=== PATIENT | female | born 1990 | race Caucasian/White ===

== ENCOUNTER 2022-11-23 12:01 | Outpatient (CLI) | payer OTHER, SELFPAY ==
--- NOTE | ~2022-11-23 | XR_ITS ---
EXAMINATION: XR hysterosalpingogram DATE: 11/23/2022 12:42 INDICATION: Infertility. TECHNIQUE: Fluoroscopy was performed by the radiologist during contrast infusion into the endometrial cavity of the uterus by the primary physician. Fluoroscopy exposure time was 0.8 minutes. The total number of images was 8. FINDINGS: Intrauterine cavity is normal in morphology. The fallopian tubes are normal in caliber. The re is normal free intraperitoneal spillage of contrast on the left. Intravasation of contrast is note d. IMPRESSION: 1. Normal free intraperitoneal spillage of contrast from left fallopian tube. 2. No visualized intraperitoneal spillage of contrast from right fallopian tube. Reviewed, dictated and finalized at location A. IMPRESSION: 1. Normal free intraperitoneal spillage of contrast from left fallopian tube. 2. No visualized intraperitoneal spillage of contrast from right fallopian tube .
== END 2022-11-23 12:02 | disposition home or self-care (01) ==
LOC: ANHIMG 12:05
PROVIDERS: Visit Provider Obstetrics & Gynecology Gynecology
DX: Z31.49 Encounter for other procreative investigation and testing (principal)
CPT/HCPCS: 58340; 74740; Q9966

== ENCOUNTER → 2023-02-09 09:11 | Outpatient (CLI) | payer OTHER, SELFPAY ==
--- NOTE | ~2023-02-09 | US_ITS ---
Pelvic ultrasound. Clinical History: First trimester , establish dates and viability, history of infertility Technique: Realtime transabdominal and transvaginal scanning of the pelvis was performed. Color flow Doppler and Doppler spectral analysis were performed. Findings: The uterus is anteverted. There is and early intrauterine gestational sac. [place]-rump lengt h of 3.5 mm corresponds to an estimated gestational age of 6 weeks 0 days. heart rate is 114 bp m. The right ovary measures 2.1 x 2.5 x 2.0 cm. No significant right ovarian or adnexal mass is seen. The left ovary measures 2.8 x 2.6 x 1.4 cm. No significant left ovarian or adnexal mass is seen. There is no evidence of free fluid in the cul de sac. Impression: Live intrauterine gestation with estimated gestational age of 6 weeks 0 days. heart rate is 114 bpm. Sonographic ADRIAN is 10/05/2023. Reviewed, dictated and finalized at location . Impression: Live intrauterine gestation with estimated gestational age of 6 weeks 0 days. F etal heart rate is 114 bpm. Sonographic ADRIAN is 10/05/2023.
== END ==
PROVIDERS: PCP Obstetrics & Gynecology Gynecology; Visit Provider Obstetrics & Gynecology Gynecology
DX: O09.01 Supervision of pregnancy with history of infertility, first trimester (principal); Z3A.01 Less than 8 weeks gestation of pregnancy
CPT/HCPCS: 76801; 76817

== ENCOUNTER → 2023-05-09 14:11 | Outpatient (CLI) | payer OTHER, SELFPAY ==
--- NOTE | ~2023-05-09 | US_ITS ---
EXAMINATION: US OB /maternal detail DATE: 05/09/2023 14:53 INDICATION: survey TECHNIQUE: Multiple obstetric sonographic images performed. FINDINGS: Comparison ultrasound dated 02/09/2023 There is a single living fetus in variable presentation. The placenta is posterior without placenta previa. Placental margin to the cervix is 2.6 cm. Cervical length is 3.2 cm. Amniotic fluid volume is subjectively normal. cardiac activity and movement is noted with a heart rate of 151 beats per minute. The following anatomy was identified as normal: 4 chamber heart (ventricular outflow tracts not well visualized due to position). 3 vessel cord cord insertion kidneys urinary bladder stomach spine diaphragm ventricles cisterna magna cerebellum The following biometric data were obtained: BPD: 44mm corresponds to gestational age 19 weeks 1 days. Head circumference: 164 mm corresponds to gestational age 19 weeks 1 days. Abdominal circumference: 135 mm corresponds to gestational age 19 weeks 0 days. Femur length: 30 mm corresponds to gestational age 19 weeks 2 days. Head circumference to abdominal circumference ratio: 1.22 (normal range for expected gestational age is 1.09-1.26). Estimated weight: 274 grams +/- 41 grams using Hadlock method, 69%. IMPRESSION: 1: Single living intrauterine with an estimated gestational age of 18weeks 5days by initial ultrasound measurements, with an EDC of 10/05/2023 in variable presentation. 2. Limited survey for evaluation of outflow tracts due to lie. Remainder of the survey is unre markable. Reviewed, dictated and finalized at location A. IMPRESSION: 1: Single living intrauterine with an estimated gestational age of 18 weeks 5days by initial ultrasound measurements, with an EDC of 10/05/2023 in hailey iable presentation. 2. Limited survey for evaluation of outflow tracts due to lie. Remainder of the survey is unremarkable.
== END ==
PROVIDERS: PCP Obstetrics & Gynecology Gynecology; Visit Provider Advanced Practice Midwife
DX: Z36.9 Encounter for antenatal screening, unspecified (principal)
CPT/HCPCS: 76805

== ENCOUNTER → 2023-06-11 09:44 | Outpatient (CLI) | payer OTHER, SELFPAY ==
--- NOTE | ~2023-06-11 | US_ITS ---
EXAMINATION: US OB follow up DATE: 06/11/2023 10:14 INDICATION: Follow-up survey for heart views. TECHNIQUE: Real-time transabdominal obstetric ultrasound. FINDINGS: Comparison to multiple prior studies sequentially, with oldest reviewed study dated 2022. There is a single living fetus in vertex presentation. The placenta is posterior without placenta pr evia. Placental distance to the cervix is 1.2 cm. cardiac activity and movement is noted with a heart rate of 124 beats per minute. T he amniotic fluid volume is subjectively normal. Limited survey demonstrates a normal four-chamber heart and ventricular outflow tracts. IMPRESSION: 1. Single living intrauterine in vertex presentation. 2: Normal limited survey of four-chamber heart and ventricular outflow tracts. 3: Low-lying posterior placenta measuring 1.2 cm to the cervix. Reviewed, dictated and finalized at location A. THCARE OR MEDICAL IMPRESSION: 1. Single living intrauterine in vertex presentation. 2: Normal limited survey of four-chamber heart and ventricular outflow tr acts. 3: Low-lying posterior placenta measuring 1.2 cm to the cervix.
== END ==
PROVIDERS: PCP Advanced Practice Midwife; Visit Provider Advanced Practice Midwife
DX: Z36.2 Encounter for other antenatal screening follow-up (principal); Z3A.00 Weeks of gestation of pregnancy not specified; O44.40 Low lying placenta NOS or without hemorrhage, unspecified trimester
CPT/HCPCS: 76816

== ENCOUNTER → 2023-07-30 08:49 | Outpatient (CLI) | payer OTHER, SELFPAY ==
--- NOTE | ~2023-07-30 | US_ITS ---
EXAMINATION: US OB follow up DATE: 07/30/2023 09:49 INDICATION: Low lying placenta . TECHNIQUE: Real-time ultrasound of the pelvis was performed. COMPARISON: 06/11/2023 FINDINGS: There is a single living fetus in vertex presentation, longitudinal lie. The placenta is posterior, 7.5 cm from the cervix. Cervical length 3.7 cm. The cervix is closed. heart rate is 140 bpm. Th e amniotic fluid index is 16.5 cm, which is normal (5th to 95th percentile is 9.0 to 23.4 cm). The following biometric data were obtained: Biparietal diameter (BPD): 7.69 cm; head circumference (HC): 28.13 cm; abdominal circumference (AC): 25.92 cm; femur length (FL): 5.72 cm. These measurements are concordant. Estimated weight is 1525 g +/- 228.81 g, which correlates with the 18.3 percentile when 10/02/19 24 is used as estimated date of delivery. As single measurements, these parameters are each equal to the following estimated gestational ages w ith ranges of +/- 2 standard deviations: BPD: 30 weeks 6 days ( 27 weeks 5 days - 33 weeks 6 days). HC: 30 weeks 6 days ( 27 weeks 6 days - 33 weeks 6 days). AC: 30 weeks 1 days ( 27 weeks 1 days - 33 weeks 0 days). FL: 30 weeks 0 days ( 27 weeks 6 days - 32 weeks 0 days). estimated gestational age based solely on measurements from this exam is 30 weeks 3 days +/- 2 weeks 1 days. IMPRESSION: Single living fetus in vertex presentation. ADRIAN by ultrasound 10/05/2023. The placenta is no longer low-lying. Reviewed, dictated and finalized at location K. REPAIRER
== END ==
PROVIDERS: PCP Obstetrics & Gynecology Gynecology; Visit Provider Obstetrics & Gynecology Gynecology
DX: O44.43 Low lying placenta NOS or without hemorrhage, third trimester (principal); Z3A.30 30 weeks gestation of pregnancy
CPT/HCPCS: 76816

== ENCOUNTER 2023-09-22 12:17 | Inpatient (IN) | payer OTHER, SELFPAY ==
--- NOTE | ~2023-09-22 | US_ITS ---
EXAMINATION: US OB limited DATE: 09/22/2023 16:20 INDICATION: Assess cardiac activity during third trimester TECHNIQUE: Real-time ultrasound of the pelvis was performed. The interpreting radiologist was not pre sent for the study. COMPARISON: None. FINDINGS: There is a single living fetus in vertex presentation. . No heart motion on either cine graysca le imaging or M-mode Doppler consistent with demise. IMPRESSION: 1. Single fetus with no discernible heart motion consistent with demise. Reviewed, dictated and finalized at location L.
[2023-09-22 13:00] VITALS: BP 128/92; PULSE 100
[2023-09-22 13:30] VITALS: BP 128/83; PULSE 99
[2023-09-22 13:43] LABS: Amphetamine Screen Urine Negative (Negative); Barbiturate Screen Urine Negative (Negative); Benzodiazepines Screen Urine Negative (Negative); Cannabinoid Screen Urine Negative (Negative); Cocaine Screen Urine Negative (Negative); Methadone Screen Urine Negative (Negative); Opiate Screen Urine Negative (Negative); Phencyclidine Screen Urine Negative (Negative)
[2023-09-22 13:52] LABS: Basophils Percent Auto 0.1 % (0.2-1.2); Eosinophils Percent Auto 0.2 % (0-4.4); Hematocrit 41.2 % (37.0-47.0); Hemoglobin 13.8 g/dL (12.0-15.0); Immature Granulocyte Absolute 0.06 K/mm3 (0.00-0.031); Immature Granulocyte Percent A 0.4 % (0-0.5); Lymphocytes Absolute Auto 1.56 K/mm3 (0.9-3.2); Lymphocytes Percent Auto 11.4 % (18.3-44.2); Mean Corpuscular HGB Conc 33.5 g/dl (32-36); Mean Corpuscular Volume 86.6 fl (80-100); Mean Platelet Volume 10.5 fl (7.4-10.4); Monocytes Absolute Auto 0.7 K/mm3 (0.1-0.6); Monocytes Percent Auto 4.8 % (2.6-8.5); Neutrophils Absolute Auto 11.4 K/mm3 (1.3-6.7); Neutrophils Percent Auto 83.1 % (45.5-73.1); Platelet Count Result 267 k/mm3 (150-375); Red Blood Count 4.76 M/mm3 (4.2-5.4); Red Cell Distribution Width 15.6 % (11.5-14.5); White Blood Count 13.7 K/mm3 (4.5-10.0)
[2023-09-22 14:00] VITALS: BP 109/86; PULSE 97
[2023-09-22 14:30] VITALS: BP 117/85; PULSE 99
[2023-09-22 15:22] LABS: Free T4 Free Thyroxine 0.79 ng/mL (0.78-2.19)
[2023-09-22 15:33] LABS: Thyroid Stimulating Hormone 0.597 uIU/mL (0.465-4.680)
[2023-09-22 15:43] VITALS: BMI 39.4
--- NOTE | 2023-09-22 15:43 | LDADM ---
This patient, Moni Lopez, was admitted to Labor/Delivery/Recovery 110 on 09/22/23 at 12:17. Plans for labor, pain management and were discussed with patient. Patient/family oriented to hospital policies and general routines including ID bracelet, bed and alarms, visiting hours, pain management, procedures, bathroom and other care routines, personal items, smoking policy, room service/diet and guest tray routines, security routines, and visiting hours. Patient/Family are encouraged to report perceived risks to care and to ask questions if they do not understand what they are told or what they should do. See OBIX for further documentation.
[2023-09-22 16:19] LABS: Hemoglobin A1C 5.2 % (<5.7)
[2023-09-22] MEDS: miSOPROStol 25 MCG TABLET XX (16:51)
[2023-09-22 17:00] VITALS: BP 134/89; PULSE 102
--- NOTE | 2023-09-22 17:08 | WPDOBADMIT ---
Obstetrics - Admit Note Admission Note: record reviewed. No pertinent additions to the history and/or any subsequent changes in the physical findings that are not consistent with the expected course of the were found. Additions to the history and/or subsequent changes in the physical findings follow. Pt diagnosed with IUFD at 38 weeks in the office.
--- NOTE | 2023-09-22 17:12 | WPDANESEPP ---
Anes - Eval Pre Procedure Procedure: labor epidural Date/Time: 09/22/23 17:12 Surgeon: lula Preop Diagnosis: pain during labor Pre Op Diagnosis: IUFD Patient Data Age: 33 Gender: F Height: 1.6 m Weight: 101 kg Last Vital Signs Pulse 102 H 09/22/23 17:00 BP 134/89 09/22/23 17:00 O2 Del Method Room Air 09/22/23 15:43 Allergies Allergy/AdvReac Type Severity Reaction Status Date / Time No Known Allergies Allergy Verified 09/03/23 13:29 Home Medications Medication Instructions Recorded Confirmed Type aspirin 81 mg tablet 81 mg PO DAILY 09/03/23 09/03/23 History cholecalciferol (vitamin D3) 125 5,000 unit PO WEEKLY 09/03/23 09/03/23 History mcg (5,000 unit) tablet (Vitamin D3) vits no.126-ferrous fum 1 tablet PO DAILY 09/03/23 09/03/23 History 28 mg iron-folic acid 800 mcg tablet (Classic ) Laboratory Tests 09/22/23 09/22/23 09/22/23 12:44 12:45 12:45 WBC 13.7 H K/mm3 (4.5-10.0) RBC 4.76 M/mm3 (4.2-5.4) Hgb 13.8 g/dL (12.0-15.0) Hct 41.2 % (37.0-47.0) MCV 86.6 fl (80-100) MCH 29.0 pg (26-34) MCHC 33.5 g/dl (32-36) RDW 15.6 H % (11.5-14.5) Plt Count 267 k/mm3 (150-375) MPV 10.5 H fl (7.4-10.4) Immature Gran % (Auto) 0.4 % (0-0.5) Neut % (Auto) 83.1 H % (45.5-73.1) Lymph % (Auto) 11.4 L % (18.3-44.2) [place] % (Auto) 4.8 % (2.6-8.5) Eos % (Auto) 0.2 % (0-4.4) Baso % (Auto) 0.1 L % (0.2-1.2) Lymph # (Auto) 1.56 K/mm3 (0.9-3.2) [place] # (Auto) 0.7 H K/mm3 (0.1-0.6) Eos # (Auto) 0.0 K/mm3 (0-0.3) Baso # (Auto) 0.0 K/mm3 (0.0-0.1) Abs Immat Gran (auto) 0.06 H K/mm3 (0.00-0.031) Absolute Neuts (auto) 11.4 H K/mm3 (1.3-6.7) Absolute Nucleated RBC 0.000 K/mm3 (0.0-0.012) Nucleated RBC % 0.0 % (0.0-0.2) LA PTT Screen Pending dRVVT Screen Pending dRVVT Additional Test Pending Lupus Anticoag Interp Pending Hemoglobin A1c 5.2 % (<5.7) TSH Free T4 0.79 ng/mL (0.78-2.19) Urine Opiates Screen Negative (Negative) Urine Methadone Screen Negative (Negative) Ur Barbiturates Screen Negative (Negative) Ur Phencyclidine Scrn Negative (Negative) Ur Amphetamine Screen Negative (Negative) U Benzodiazepines Scrn Negative (Negative) Urine Cocaine Screen Negative (Negative) U Cannabinoids Screen Negative (Negative) Beta-2-GPI IgG Ab Pending Pending Beta-2-GPI IgA Ab Pending Beta-2-GPI IgM Ab Phosphatidylserine Ab Phosphatidylserine IgG Phosphatidylserine IgA Phosphatidylserine IgM Anti-Cardiolipin IgG Ab Pending Anti-Cardiolipin IgA Ab Pending Anti-Cardiolipin IgM Ab Pending RPR CMV IgG Ab CMV IgM Ab HSV I Specific Ab HSV II Specific Ab Parvovirus B19 IgG Intp Parvovirus B19 IgM Intp Rubella IgG Antibody Toxoplasma IgG Ab Toxoplasma IgM Ab Add Miscellaneous Test Blood Type Antibody Screen 09/22/23 09/22/23 09/22/23 12:45 12:45 14:51 WBC RBC Hgb Hct MCV MCH MCHC RDW Plt Count MPV Immature Gran % (Auto) Neut % (Auto) Lymph % (Auto) [place] % (Auto) Eos % (Auto) Baso % (Auto) Lymph # (Auto) [place] # (Auto) Eos # (Auto)
[2023-09-22 19:00] VITALS: TEMP 36.6
[2023-09-22] MEDS: miSOPROStol 25 MCG TABLET 50 MCG XX (21:23)
[2023-09-22 23:09] LABS: Rapid Plasma Reagin Non-Reactive (NonReactive)
[2023-09-23] VITALS (148 sets, daily range): BP systolic 79–147; BP diastolic 50–103; PULSE 80–124; TEMP 36.3–36.9; O2SAT 98–100
[2023-09-23] MEDS: OXYTOCIN 30 UNITS/NS 500 ML 30 UNITS/500 ML BAG IV CONT (01:30)
[2023-09-23] MEDS: LACTATED RINGERS 1,000 ML 125 ML IV CONT ×4 (01:30→18:35)
--- NOTE | 2023-09-23 04:33 | PM.OBPNLAB ---
Pain Control Date/time seen: 09/23/23 04:33 Pain control: tolerating well (minimal contractions) Pelvic Exam Dilation (cm): 1 (fingertip) Effacement (%): 50 station: -2 Amniotic membrane status: Intact Contractions Monitor mode: External Contraction pattern: Irregular Contraction intensity: Mild Status Comments: absent FHT Assessment and Plan Pitocin rate (mU/min): 18 Assessment: induction ongoing Plan: continuous present management
[2023-09-23 10:09] LABS: Rubella IgG Antibody 4.4 IU/ML
[2023-09-23] MEDS: CALCIUM CARBONATE (TUMS) 500 MG (200 MG ELEMENTAL) PO (18:14)
[2023-09-23] MEDS: FAMOTIDINE 20 MG/2 ML VIAL (20:11)
--- NOTE | 2023-09-23 21:05 | PM.OBPRVD ---
OB - Vaginal Delivery Note Procedure Delivery date: 09/23/23 Events: Other (Covid 07/02; IUFD at 38 3/7 wks) Induction method: Per Misoprostol Protocol and Per Pitocin Protocol Delivery monitor: External FHT and Internal Uterine Route of delivery: Laceration Description: Perineal - 2nd Degree Delivery repair: vicryl (3-0) Specimen: Yes (placenta; for autopsy) Quantitative Blood Loss (ml): 150 Anesthesia type: Epidural Disposition: Floor Complications: Other complications (IUFD) [place] Baby Date of : 09/23/23 Weeks of gestation at delivery: 38 Infant gender: Female presentation: vertex position: Right Occiput Anterior Placenta delivery description: Spontaneous Cord Vessel Description: 3 Vessels and Nuchal Cord (x 1) score one minute: 0 score five minutes: 0
--- NOTE | 2023-09-23 21:11 | PM.OBDSVD ---
DS: Admitting Diagnosis Discharge Date 09/24/23 Admitting Diagnosis IUP 38 3/7 wks IUFD DS: Discharge Diagnosis Discharge Diagnosis (1) IUFD (intrauterine ): Status: Acute (2) (spontaneous vaginal delivery): Code(s): O80 - Encounter for full-term uncomplicated delivery Status: Acute OB - DS: Summary OB Procedures : Ultrasound OB Procedures Intrapartum: Spontaneous Vag Delivery OB Procedures: : None Peripartum Data Infant Delivery Method: Natural Vaginal Laceration Description: Perineal - 2nd Degree complications: none Status at Discharge Functional status at discharge: independent ambulation Overall status at discharge: patient is progressing back to baseline Time Spent with Patient Time attestation: Total time spent providing and/or coordinating discharge services: DS: Data Data Completed and Pending Labs on day of discharge: Labs from last 24 hours 09/22/23 12:45 RPR Non-reactive Rubella IgG Antibody 4.4 L Discharge Plan Discharge Attending physician on discharge: Savana Szymanski Discharging Clinician: Savana Szymanski Anticipated Discharge Date/Time: 09/24/23 12:00 Patient Disposition: Home, Self-Care Activity: may shower and pelvic rest Diet: regular Discharge Instructions: Follow-Up: Call your Provider's office for an appointment to be seen in: 1-2 weeks after discharge from hospital EPISIOTOMY/PERINEAL CARE: * Until bleeding stops, use your bianca bottle after urinating * Change your pad frequently throughout the day * You may take sitz baths several times a day (fill your bathtub with warm water and soak for 20 minutes.) Do NOT bathe in the water * No tub baths until seen by your physician - You may shower BLEEDING: * Each individual will experience vaginal bleeding, but it will vary with each situation and individual woman. * Vaginal bleeding will go thru cycles-from bright red, to pinkish to a white, creamy discharge. This is considered normal. You may also experience a brownish discharge which is also normal. DIET AND NUTRITION: * Eat at least 3 regular, well-balanced meals per day: include all 4 food groups daily. * You may prefer 6 small meals. * Drink 6-8 glasses of water or non-caffeinated beverages per day. * Loss of appetite is common with loss. We encourage you to try to eat; this will help with both your physical and emotional health. ACTIVITY: * Rest as much as possible during the day. * Do not exercise or lift anything heavier than 10 pounds (such as laundry or other children.) * Avoid stairs or driving as much as possible, especially if you are taking pain medication. * Do not put anything into the vagina. No douching, tampons, or sexual activity until seen and released by your physician. * Listen to your body, and do not do what is uncomfortable or painful. EMOTIONAL HEALTH: * This is a very difficult and sad time for you and your family, friends, and other children. It may be helpful to refer to the booklets on loss that you received. * It is okay to be sad and to cry. Denial, anger, and guilt are also normal stages that you and your family may go thru during this time. Each person reaches these stages at their own pace. * Keep the lines of communication open between family and friends, and ask for help if needed. NOTIFY PHYSICIAN IF YOU HAVE ANY QUESTIONS OR IF ANY OF THE FOLLOWING SYMPTOMS OCCUR: * If your episiotomy or incision becomes red, swollen, or more painful than what you have experienced in the hospital. * If your vaginal bleeding becomes foul smelling. * If your vaginal bleeding becomes more heavy than a period or if your bleeding changes from pink to bright red. However, you may pass an occasional walnut-sized clot once or twice for the first week . * If you experience a sharp, shooting pain in you calves. * If you discover a hard, reddened area on your breast or
--- NOTE | 2023-09-23 22:27 | PC.NURSE ---
2227 Staff Readiness Officer called. Spoke to Gabino. No case created.
--- NOTE | 2023-09-23 22:34 | PC.NURSE ---
2234 MTS NOTIFIED OF DEMISE. SPOKE TO WENDI. NO CASE CREATED.
[2023-09-24] MEDS: IBUPROFEN 600 MG TABLET PO ×3 (06:15→11:49)
[2023-09-24] MEDS: ACETAMINOPHEN 325 MG TABLET 650 MG PO ×3 (06:15→11:50)
[2023-09-24 09:19] VITALS: BP 122/78; PULSE 79
[2023-09-24 11:00] LABS: Hematocrit 33.7 % (37.0-47.0); Hemoglobin 11.3 g/dL (12.0-15.0)
[2023-09-24] MEDS: DOCUSATE SODIUM 100 MG CAPSULE PO (11:51)
[2023-09-25 14:59] LABS: CMV IgM Antibody <30.00 AU/mL (<30.00)
[2023-09-26 09:02] LABS: Toxoplasma IgG Antibody <7.20 IU/mL (<7.20)
[2023-09-26 09:33] LABS: Toxoplasma IgM Antibody <8.00 AU/mL (<8.00)
[2023-09-28 21:26] LABS: Lupus dRVVT Screen 42 sec (<=45); PTT-LA Screen 38 sec (<=40)
[2023-09-30 19:05] LABS: Anti Cardio Antibody IgM <2.0 MPL-U/mL (<20.0); Anti Cardiolipin Antibody IgA <2.0 APL-U/mL (<20.0); Anti Cardiolipin Antibody IgG <2.0 GPL-U/mL (<20.0)
[2023-10-12 15:36] LABS: Lupus dRVVT Additional Testing Not Indicated
== END 2023-09-24 12:05 | disposition home or self-care (01) | DRG 807 ==
PROVIDERS: Advanced Practice Midwife; Admitting Provider Obstetrics & Gynecology Gynecology; Visit Provider Obstetrics & Gynecology Gynecology
DX: O36.4XX0 Maternal care for intrauterine death, not applicable or unspecified (principal); Z37.1 Single stillbirth; O77.0 Labor and delivery complicated by meconium in amniotic fluid; O70.1 Second degree perineal laceration during delivery; O69.81X0 Labor and delivery complicated by cord around neck, without compression, not applicable or unspecified; Z3A.38 38 weeks gestation of pregnancy
CPT/HCPCS: 36415; 76815; 80307; 83036; 84439; 84443; 85014; 85018; 85025; 85613; 85730; 86146; 86147; 86592; 86644; 86645; 86695; 86696; 86747; 86762; 86777; 86850; 86900; 86901; 88307; 88342; A9270; J2590; J2795; J7120

== ENCOUNTER 2024-05-25 08:15 | Outpatient (CLI) | payer OTHER, SELFPAY ==
--- NOTE | ~2024-05-25 | US_ITS ---
EXAMINATION: US OB transvaginal DATE: 05/25/2024 08:50 INDICATION: Supervision of a during the first trimester. TECHNIQUE: Real-time transabdominal and transvaginal pelvic ultrasound was performed. COMPARISON: None. FINDINGS: TRANSABDOMINAL ULTRASOUND: The uterus measures 9.8 x 4.9 x 6.2 cm. TRANSVAGINAL ULTRASOUND: There is an intrauterine gestational sac. A yolk sac is identified. The fet al crown rump length measures 5 mm, which correlates with an estimated gestational age of 6 weeks and 2 day(s) (+/-) 4 day(s). heart motion is identified measuring 121 beats per minute (bpm) by M- mode Doppler. There is a small subchronic hematoma. The ovaries are not visualized. There is no free fluid in the pelvis. IMPRESSION: 1. Single living intrauterine gestation with estimated date of delivery of 01/16/2025. 2. Small subchorionic hematoma. Reviewed, dictated and finalized at location A. STRIAL MACHINERY MECHANIC IMPRESSION: 1. Single living intrauterine gestation with estimated date of delivery of 01/16. 2. Small subchorionic hematoma.
== END 2024-05-25 08:16 | disposition home or self-care (01) ==
LOC: MICIMG 08:15
PROVIDERS: PCP Obstetrics & Gynecology Gynecology; Visit Provider Obstetrics & Gynecology Gynecology
DX: O41.8X11 Other specified disorders of amniotic fluid and membranes, first trimester, fetus 1 (principal); O09.01 Supervision of pregnancy with history of infertility, first trimester; Z3A.00 Weeks of gestation of pregnancy not specified
CPT/HCPCS: 76817

== ENCOUNTER 2024-06-27 08:18 | Outpatient (CLI) | payer OTHER, SELFPAY ==
--- NOTE | ~2024-06-27 | US_ITS ---
US OB <= 14 weeks fetus Ordering provider: Savana Szymanski MD History: . subchorionic hematoma 1st trimester . Comparison: None. Technique: Transabdominal and endovaginal ultrasound of the pelvis (Doppler ultrasound interrogation techniques used as needed for this exam.) FINDINGS: CERVIX: Normal. UTERUS: Measures 14x 6.4x 8.8 cm in length which is within normal limits and is anteverted. No myome trial masses. Intrauterine is seen. heart beats are noted measuring 165 bpm. pole is seen measuring 5.16 cm: 11 weeks and 6 days. ADRIAN is January 10, 2025. CUL DE SAC: No free fluid. RIGHT OVARY: Normal in size measuring 2.3x 2.8 x 1.6 centimeters. Normal echotexture. Doppler vascula r flow present. LEFT OVARY: Not demonstrated. ADNEXA: Normal. No mass. IMPRESSION: Single live Intrauterine of 11 weeks and 6 days. ADRIAN is January 10, 2025. Otherwise, normal pel nisa ultrasound. Reviewed, dictated and finalized at location A. OR VICE PRESIDENT & GENERAL COUNSEL IMPRESSION: Single live Intrauterine of 11 weeks and 6 days. ADRIAN is January 10, 2025. Otherwise, normal pelvic ultrasound.
== END 2024-06-27 08:19 | disposition home or self-care (01) ==
LOC: MICIMG 08:20
PROVIDERS: PCP Obstetrics & Gynecology Gynecology; Visit Provider Obstetrics & Gynecology Gynecology
DX: O36.8910 Maternal care for other specified fetal problems, first trimester, not applicable or unspecified (principal); Z3A.00 Weeks of gestation of pregnancy not specified
CPT/HCPCS: 76801

== ENCOUNTER 2024-12-06 07:27 | Outpatient (RCR) | payer OTHER, SELFPAY ==
[2024-12-06 08:02] VITALS: BP 118/73; PULSE 90
== END 2025-01-12 09:55 | disposition other institution (70) ==
LOC: ANHOBOP 07:27
PROVIDERS: Visit Provider Obstetrics & Gynecology Gynecology
DX: Z36.89 Encounter for other specified antenatal screening (principal)
CPT/HCPCS: 59025

== ENCOUNTER 2024-12-17 16:59 | Inpatient (IN) | payer OTHER, SELFPAY ==
[2024-12-17] VITALS (17 sets, daily range): BP systolic 117–129; BP diastolic 65–83; PULSE 74–97; TEMP 36.5; O2SAT 99; BMI 40.0
--- OUTSIDE RECORDS SUMMARY | 2024-12-17 17:04 | XMS_ITS | Clinical Summary ---
Author Organization [address] Address [address] [place] [id number] Care Team Providers Care Balloon Dipper Name Role Phone Unknown, Notinfile Primary Care Provider Unavail able Allergies No known active allergies Medications ergocalciferol (VITAMIN D) 50,000 unit capsule Take 50,000 Units by mouth once a week 07/31/2021 Active Active Problems No known active problems Social History Tobacco Use Types Packs/Day Years Used Date Smoking Tobacco: Never Assessed Comments Unknown Sex and Gender Information Value Date Recorded Sex Assigned at Not on file Legal Sex Female 10:14 PM 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 ALARM INSTALLER Gender Identity Female 06/27/2023 7:47 PM 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 ALARM INSTALLER Sexual Orientation Not on file Obstetrics History Last Filed Vital Signs Vital Sign Reading Time Taken Comments Blood Pressure 116/70 06/28/2023 3:21 PM 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 ALARM INSTALLER Pulse 112 06/28/2023 3:21 PM 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 ALARM INSTALLER Temperature 36.6 C (97.9 F) 06/28/2023 3:21 PM 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 ALARM INSTALLER Respiratory Rate 20 06/28/2023 3:21 PM 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 ALARM INSTALLER Oxygen Saturation 99% 06/28/2023 3:21 PM 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 ALARM INSTALLER Inhaled Oxygen Concentration - - Weight 92.5 kg (204 lb) 06/28/2023 3:21 PM 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 ALARM INSTALLER Height 160 cm (5' 3) 08/14/2022 2:28 PM 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 ALARM INSTALLER Body Mass Index 36.14 08/14/2022 2:28 PM 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 ALARM INSTALLER Plan of Treatment Health Maintenance Due Date Last Done Comments Cervical Cancer Screening 1992 Depression Screening 1992 Hepatitis C Screening 1992 DTaP/Tdap/Td Vaccine (1 - Tdap) 02/13/2003 Varicella Vaccines (1 of 2 - 13+ 2-dose series) 02/13/2005 Hepatitis B Screening 02/13/2010 Regular Well Visit/Exam 18-64 02/13/2010 Covid-19 Vaccine (4 - 2023-2 5 season) 2024 06/14/2021, 08/19/2020, 07/22/2020 Influenza Vaccine (Season Ended) 2025 HPV Vaccines Aged Out No longer eligi ble based on patient's age to complete this topic Pneumococcal vaccine <65 Aged Out No longer eligible based on patient's age to complete this topic Insurance [facility] [id number] Member Subscriber Plan / Payer (Ef fective 2022-Present) Name:Moni Lopez Member ID:[id number] Relation to Subscriber:Self Name:Moni Lopez Subscriber ID:[id number] Payer ID:[id number] Type:BlackbookHRO/PPO Address: [place] [id number] [place] [phone] Care Teams Balloon Dipper Relationship Specialty Start Date End Date Unknown, Notinfile PCP - General 08/14/22
--- OUTSIDE RECORDS SUMMARY | 2024-12-17 17:04 | XMS_ITS | Clinical Summary ---
Author Organization [facility] Address [address] [place] [place] [address] Care Team Providers Care Tester Operator Name Role Phone Unavailable Primary Care Provider Unavailabl e Source Comments [facility],non-owned Affiliates and Associated Physician Practices is amultiple site organization consisting of ambulatory clinics and hospital sitesin [place], [place], [place] and [place]. This disclosure is being madepursuant to the Care Everywhere program and may not contain all information available regarding this patient. Last updated 18.[facility] Allergies No known active allergies Medications * This document contains information received from the source organization and may not represent a complete record from that organization. * Be aware that medications may not be up to date on this document. Alwaysverify current medications with the patient. multivitamin daily tablet Take 1 (one) tablet by mouth daily with food Active calcium citrate-vitamin D (Citracal Plus D) 315-5 MG-MCG tablet Take 1 (one) tablet by mouth once daily Active Active Problems Problem Noted Date Diagnosed Date History of stillbirth 12/06/2023 Estimated Date of Delivery Comme nts Yes 01/11/2025 Based on last me nstrual period of 04/06/2024 Encounters Date Type Department Care Team Description 12/17/2024 7:25 AM CDT Hospital Encounter [facility] Maternal & Care [address] [place] [id number] Mel Hall MD Boyle, Annelee C, MD PATIENT ACCOUNTS COORDINATOR 12/10/2024 7:25 AM CDT - 12/10/2024 11:59 PM CDT Hospital Encounter Formerly [facility] Maternal & Care [address] [place] [id number] Harinder Leyva DO PATIENT ACCOUNTS COORDINATOR Discharge Disposition: Home or Self Care 12/10/2024 Travel 12/04/2024 7:23 AM CDT - 12/04/2024 11:59 PM CDT Hospital Encounter [facility] Maternal & Care [address] [place] [id number] Destin Calderon MD Discharge Disposition: Home or Self Care 11/26/2024 7:23 AM CDT - 11/26/2024 11:59 PM CDT Hospital Encounter [facility] Maternal & Care [address] [place] [id number] Denise Eason MD Discharge Disposition: Home or Self Care 11/19/2024 7:25 AM CDT - 11/19/2024 11:59 PM CDT Hospital Encounter [facility] Maternal & Care [address] [place] [id number] Destin Calderon MD Discharge Disposition: Home or Self Care 10/26/2024 3:04 PM CDT - 10/26/2024 11:59 PM CDT Hospital Encounter [facility] Maternal & Care [address] [place] [id number] Destin Calderon MD Discharge Disposition: Home or Self Care 10/15/2024 Travel 09/24/2024 8:58 AM CDT - 09/24/2024 11:59 PM CDT Hospital Encounter [facility] Maternal & Care [address] [place] [id number] Lisset Stevens MD Discharge Disposition: Home or Self Care from Last 3 Months Family History Medical History Relation Name Comments Crohn's Disease Father Relation Name Status Comments Brother 1 Alive Brother 2 Alive Father Alive Mother Alive Social History Tobacco Use Types Packs/Day Years Used Date Smoking Tobacco: Never Smokeless Tobacco: Never Tobacco Cessation:Counseling Given: Not Answered Alcohol Use Standard Drinks/Week Comments Not Currently 0 (1 standard drink = 0.6 oz pur e alcohol) Estimated Date of Delivery Comme nts Yes 01/11/2025 Based on last me nstrual period of 04/06/2024 Sex and Gender Information Value Date Recorded Sex Assigned at Not on file 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 Gender Identity Not on file Sexual Orientation Not on file Last Filed Vital Signs Vital Sign Reading Time Taken Comments Blood Pressure 121/80 12/17/2024 8:25 AM CDT Pulse 86 12/17/2024 8:25 AM CDT Temperature 36.7 C (98 F) 02/06/2024 2:58 PM CDT Respiratory Rate 16 02/06/2024 2:58 PM CDT Oxygen Saturation 98% 02/06/2024 2:58 PM CDT Inhaled Oxygen Concentration - - Weight 89.4 kg (197 lb) 02/06/2024 2:58 PM CDT Height 160 cm (5' 3) 02/06/2024 2:58 PM CDT Body Mass Index 34.9 02/06/2024 2:58 PM CDT Plan of Treatment Health Maintenance Due Date Last Done Comments PAP SMEAR 1992 HIV SCREENING 02/13/2007 HEPATITIS C SCREENING 02/09/2010 DTAP/TDAP/TD VACCINES (1 - Tdap) 02/13/2011 HEPATITIS B VACCINE (1 of 3 - 19+ 3-dose series) 02/13/2011 COVID-19 VACCINE (4 - 2023-2 5 season) 2024 06/14/2021, 08/19/2020, 07/22/2020 DEPRESSION SCREENING 07/11/2024 OB-ONE HOUR GLUCOSE 10/05/2024 OB-TDAP CURRENT 10/12/2024 OB-RHOGAM INJECTION 10/19/2024 OB-GROUP B STREP SCREEN 12/07/2024 INFLUENZA VACCINE (Season Ended) 2025 ZOSTER VACCINE (1 of 2) 02/13/2042 HIB VACCINE Aged Out No longer eligi ble based on patient's age to complete this topic HPV VACCINE Aged Out No longer eligi ble based on patient's age to complete this topic MENINGOCOCCAL (Group B) VACCINE SHARED DECISION-MAKING Aged Out No longer eligible based on patient's age to complete this topic MENINGOCOCCAL GROUPS A/C/Y/W VACCINE Aged Out No longer eligible b ased on patient's age to complete this topic PNEUMOCOCCAL VACCINE Aged Out No long er eligible based on patient's age to complete this topic Respiratory Syncytial Virus (RSV) Vaccine Pt: or over 60 yrs (No Doses Required) Completed Procedures Procedure Name Priority Date/Time Associated Diagnosis Comments BIOPHYSICAL PROFILE [facility] Routine 12/17/2024 7:21 AM CDT Family history of infertility Positive LINETTE (antinuclear antibody) Subchorionic hemorrhage in second trimester (HCC) Encounter for screening ([facility]) History of loss in prior , currently in third trimester ([facility]) 33 weeks gestation of ([facility]) Encounter for ultrasound to assess growth ([facility]) BIOPHYSICAL PROFILE [facility] Routine 12/10/2024 7:19 AM CDT Family history of infertility Positive LINETTE (antinuclear antibody) Subchorionic hemorrhage in second trimester (HCC) Encounter for screening ([facility]) History of loss in prior , currently in third trimester ([facility]) 33 weeks gestation of ([facility]) Encounter for ultrasound to assess growth ([facility]) BIOPHYSICAL PROFILE [facility] Routine 12/04/2024 7:19 AM CDT Family history of infertility Positive LINETTE (antinuclear antibody) Subchorionic hemorrhage in second trimester (HCC) Encounter for screening ([facility]) History of loss in prior , currently in third trimester (HCC) 33 weeks gestation of (HCC) Encounter for ultrasound to assess growth ([facility]) BIOPHYSICAL PROFILE [facility] Routine 11/26/2024 7:29 AM CDT Family history of infertility Positive LINETTE (antinuclear antibody) Subchorionic hemorrhage in second trimester (HCC) Encounter for screening ([facility]) History of loss in prior , currently in third trimester (HCC) 33 weeks gestation of (HCC) Encounter for ultrasound to assess growth ([facility]) BIOPHYSICAL PROFILE [facility] Routine 11/19/2024 7:25 AM CDT History of stillbirth Family history of infertility Positive LINETTE (antinuclear antibody) Subchorionic hemorrhage in second trimester (HCC) Encounter for ultrasound to assess growth ([facility]) History of loss in prior , currently in third trimester ([facility]) History of IUFD 32 weeks gestation of ([facility]) SONOGRAM - COMPLETE Routine 10/26/2024 3 :22 PM CDT Subchorionic hemorrhage in second trimester ([facility]) Encounter for ultrasound to assess growth ([facility]) History of loss in prior , currently in third trimester ([facility]) SONOGRAM - COMPLETE Routine 09/24/2024 8 :59 AM CDT History of stillbirth Positive LINETTE (antinuclear antibody) Family history of infertility Subchorionic hemorrhage in second trimester Encounter for ultrasound to assess growth from Last 3 Months Results * BIOPHYSICAL PROFILE W NST (12/17/2024 7:21 AM CDT) Only the most recent of5 resultswithin the time period is included. Linked Results Indication ======== Hx IUFD at 38 wks History ====== OB History 2. Para 1 T1L0 1. antepartum stillbirth 09/2023. Gest. age 38 w + 0 d. Sex of child: female Lab Tests Test Date Result NIPT Low risk, Female (per patient report) Maternal Assessment Physical Exam Height 157 cm, 5 ft 2 in. Weight 103 kg, 226 lb. Initial weight 75 kg, 165 lb. BMI 41.34 kg/m . Initial BMI 30.18 kg/m . Weight gain 28 kg, 61 lb Method ====== Transabdominal ultrasound examination. View: Sufficient ========= [place] . Number of fetuses: 1 Dating ====== Date Details Gest. age ADRIAN LMP 04/06/2024 36 w + 3 d 01/11/2025 Stated ADRIAN 36 w + 3 d 01/11/2025 Assigned dating based on the LMP, selected on 08/27/2024 36 w + 3 d 01/11/2025 General Evaluation Cardiac activity present. FHR 161 bpm. Presentation: cephalic Placenta: Placental site: anterior Amniotic Fluid Assessment ==== Amount of AF: normal MVP 6.5 cm. CORBY 19.3 cm. Q1 6.5 cm, Q2 3.6 cm, Q3 5.0 cm, Q4 4.2 cm Biophysical Profile 2: breathing movements 2: Gross body movements 2: tone 2: Amniotic fluid volume NST: reactive 04/19 Biophysical profile score Non Stress Test NST interpretation: reactive. Baseline FHR 140 bpm Biometry BPD 90.0 mm 36w 3d 62% Hadlock HC 323.4 mm 36w 4d 24% Hadlock AC 344.1 mm 38w 2d 96% Hadlock Femur 75.1 mm 38w 3d 90% Hadlock Humerus 63.9 mm 37w 1d 85% Madeleine HC / AC 0.94 Weight Calculation: EFW 3,340 g 87% Hadlock EFW (lb,oz) 7 lb 6 oz EFW by Hadlock ([id number]) overall normal range, but the AC is >90% Growth Overview Exam date GA BPD (mm) HC (mm) AC (mm) FL (mm) HL (mm) EFW (g) 08/27/2024 20w 3d 46.4 33% 177.8 33% 166.2 81% 34.1 52% 33.4 81% 398 79% 09/24/2024 24w 3d 60.5 50% 225.9 37% 204.9 62% 47.5 81% 43.2 83% 793 78% 10/26/2024 29w 0d 74 60% 276.5 54% 262.3 82% 57.5 68% 52.8 88% 1533 80% 11/26/2024 33w 3d 85.6 76% 314.1 60% 317 96% 66.1 56% 57.2 56% 2580 86% 12/17/2024 36w 3d 90 62% 323.4 24% 344.1 96% 75.1 90% 63.9 85% 3340 87% Anatomy The following structures appear normal: Abdomen Stomach. Kidneys. Bladder. sex: female. Impression ========= Single, live, intrauterine at 36w 3d The growth is overall normal range, but the AC is >90% . The amniotic fluid volume is normal. The biophysical profile is 10/10. Comment ======== ultrasound alone cannot detect all structural, genetic, or functional , placental, or maternal abnormalities Follow-up ======== Patient is scheduled for IOL later today as scheduled by her OB due to maternal anxiety. Coding ====== Procedures 00688: [place] [id number]: Biophysical Profile W NST Embue PACS Anatomical Region Laterality Modality Other 12/17/2024 7:21 AM CDT us Savana Szymanski MD [facility] ORDERABLES Edited Re sult - Final * SONOGRAM - COMPLETE (10/26/2024 3:22 PM CDT) Only the most recent of2 resultswithin the time period is included. Linked Results Indication ======== Hx IUFD at 38 wks History ====== OB History 2. Para 1 T1L0 1. antepartum stillbirth 09/2023. Gest. age 38 w + 0 d. Sex of child: female Lab Tests Test Date Result NIPT Low risk, Female (per patient report) Maternal Assessment Physical Exam Height 157 cm, 5 ft 2 in. Weight 97 kg, 214 lb. Initial weight 75 kg, 165 lb. BMI 39.14 kg/m . Initial BMI 30.18 kg/m . Weight gain 22 kg, 49 lb Method ====== Transabdominal ultrasound. View: Sufficient ========= [place] . Number of fetuses: 1 Dating ====== Date Details Gest. age ADRIAN LMP 04/06/2024 29 w + 0 d 01/11/2025 Stated ADRIAN 29 w + 0 d 01/11/2025 U/S 10/26/2024 based upon AC, BPD, Femur, HC 30 w + 1 d 01/03/2025 Assigned dating based on the LMP, selected on 08/27/2024 29 w + 0 d 01/11/2025 General Evaluation Cardiac activity present. FHR 151 bpm. Presentation: cephalic Placenta: Placental site: anterior Amniotic fluid: Amount of AF: normal. MVP 5.6 cm. CORBY 16.7 cm. Q1 5.6 cm, Q2 3.8 cm, Q3 3.1 cm, Q4 4.2 cm Biometry BPD 74.0 mm 29w 5d 60% Hadlock HC 276.5 mm 30w 2d 54% Hadlock AC 262.3 mm 30w 3d 82% Hadlock Femur 57.5 mm 30w 1d 68% Hadlock Humerus 52.8 mm 30w 5d 88% Madeleine HC / AC 1.05 Weight Calculation: EFW 1,533 g 80% Hadlock EFW (lb,oz) 3 lb 6 oz EFW by Hadlock ([id number]) appropriate Growth Overview Exam date GA BPD (mm) HC (mm) AC (mm) FL (mm) HL (mm) EFW (g) 08/27/2024 20w 3d 46.4 33% 177.8 33% 166.2 81% 34.1 52% 33.4 81% 398 79% 09/24/2024 24w 3d 60.5 50% 225.9 37% 204.9 62% 47.5 81% 43.2 83% 793 78% 10/26/2024 29w 0d 74 60% 276.5 54% 262.3 82% 57.5 68% 52.8 88% 1533 80% Anatomy The following structures appear normal: Abdomen Stomach. Kidneys. Bladder. sex: female. Impression ========= Single, live, intrauterine at 29w0d The size is appropriate No major malformations were seen within the limitations of ultrasound The amniotic fluid volume is normal Follow-up ======== Ultrasound in three weeks to begin weekly NST and biophysical profile Serial growth ultrasound Q four weeks Coding ====== Procedures [id number]: US Preg Uterus Follow Up . [facility] [employer] PACS Anatomical Region Laterality Modality Other 10/26/2024 3:22 PM CDT us Savana Szymanski MD [facility] ORDERABLES Edited Re sult - Final from Last [address] [place] [id number] [facility]
--- OUTSIDE RECORDS SUMMARY | 2024-12-17 17:04 | XMS_ITS | Encounter Summary ---
Author Organization [facility] Address [address] [place] [address] Care Team Providers Care Hook And Eye Machine Operator Name Role Phone Unavailable Primary Care Provider Unavailabl e Encounter Details Date Type Department Care Team (Late st Contact Info) Description 09/28/2023 Lab Requisition [facility] - Pathology Lab [address] [place] [address] Savana Szymanski MD [address] [facility] [address] [place] [address] Illness, unspecified Social History Tobacco Use Types Packs/Day Years Used Date Smoking Tobacco: Never Smokeless Tobacco: Never Comments No Sex and Gender Information Value Date Recorded Sex Assigned at Not on file Legal Sex Female 10:06 AM [employer] Gender Identity Not on file Sexual Orientation Not on file documented as of this encounter Plan of Treatment Not on file documented as of this encounter Procedures Procedure Name Priority Date/Time Associated Diagnosis Comments PATHOLOGY TISSUE Routine 09/28/2023 8:54 AM CDT Illness, unspecified AUTOPSY ([facility]) Routine 09/28/2023 8:49 AM CDT Illness, unspecified documented in this encounter Results * PATHOLOGY TISSUE (09/28/2023 8:54 AM CDT) Case Report Surgical Pathology Report Case: [id number] Authorizing Provider: Savana Szymanski MD Collected: 09/28/2023 08:54 AM Ordering Location: [facility] - Received: 09/28/2023 08:54 AM Pathology Lab Pathologist: Aziza Will MD Specimen: Placenta 3rd Trimester, 38w 5d 10/26/2023 1:45 PM CDT [facility] Final Diagnosis Third trimester placenta and three vessel umbilical cord (38 weeks gestation): - Placental weight 373 g (3rd percentile for gestational age) - Fetoplacental ratio 6.5 (25th-50th percentile for gestational age) - Changes consistent with in utero hours before delivery - Chronic villitis of unknown etiology, high grade - Multiple intraparenchymal thrombohematomas Comment: In VELIA, maternal CD8 T lymphocytes enter villi through breaks in the trophoblastic barrier, encounter antigen on macrophages, and in the proper environment, proliferate resulting in diffuse chronic inflammation spreading within the villous tree and the release of T cell cytokines and chemokines into the circulation. This pathology has been associated with growth restriction, stillbirth, neurodisability, and recurrent loss and maternal conditions including ovum donation, autoimmune disease, preeclampsia and substance abuse. 10/26/2023 1:45 PM T [facility] at 1345 CDT Microscopic Description and Comment 10 HE, 3 CD8 Umbilical cord sections from the cord between the fetus and the stenotic area show blood in the arteries without a thrombus. The cord at the stenotic area is disrupted. The section between the stenotic area and the placenta shows blood in all three vessels without a thrombus. The sections of cords associated with the tears shows focal cord disruption. membranes show no significant inflammation. surface chorionic vessels have thick intimal cushions without intramural fibrin. There is mild chronic chorionitis. Villi show diffuse involutional charges with loss of vessels, pyknotic debris, celine calcification and rare stem villi have septate vessel lumens. In addition, there are multiple clusters of villi (often more than 10 villi on multiple sections) with chronic villitis with CD8+ T lymphocytes. The villitis is particularly prominent near the maternal floor and in the subchorionic villi and is associated with clusters of avascular villi. The hemorrhagic areas have thrombohematomas with surrounding ischemic villi (A8) with features of rounded hematomas. Maternal surface shows focal chronic inflammation and calcification with moderate basal villitis. 10/26/2023 1:45 PM [facility] Clinical History Intrauterine demise in a 38 week five day gestation (see [id number]) 10/26/2023 1:45 PM [facility] Gross Description Received in formalin for gross and microscopic examination labeled Moni alvarenga and umbilical cord segment is a placenta with attached umbilical cord and membranes. The placental disc measures 18.5 x 14.8 with a thickness of 3.2 cm. The umbilical cord segment is 42.6 cm in length and ranges from 1.2-2.0 cm in diameter. There are no knots of this cord and there are three umbilical cord vessels. The cord is a dusky purple guillen and edematous with a central attachment 6.6 cm from the nearest edge. Nine coils are identified throughout the length of the cord (coil index 0.2) including one tight coil located 3.5 cm from the insertion point. There are also two areas of deep tissue tears on this cord. The membranes are pink-guillen and unremarkable with a mottled appearance and a marginal attachment. The surface has a milky white to pink appearance with a 0.4 cm yolk sac remnant. The maternal surface has areas of loosely adherent coagula and somewhat flat pale cotyledons. Serial sectioning reveals several dark red blood clots in the cotyledons ranging from 0.3-2.0 cm in greatest dimension. There are multiple areas of pale almost chalky nodular areas in the cotyledons. Approximately 90% of the disc is affected by these processes. The placenta weighs 373.7 g trimmed partially fixed. Industrial Arts Teacher sections are follows: A1 cord nearest fetus adjacent to tight stenotic area, A2 cord at tight stenotic area, A3 cord closest to surface adjacent to tight stenotic area, A4 two sections of tears of the coils, A5 membranes, A6-A10 advertising sales representative sections of maternal surface including light areas and hemorrhagic areas. 10/26/2023 1:45 PM [facility] Pathologist Location at [facility] 10/26/2023 1:45 PM [facility] Disclaimer The performance characteristics of all immunohistochemical and indirect immunofluorescence stains (if any) cited in this report were determined by the [facility]. Some of these tests were developed by our own laboratory and have not been cleared or approved by the US Food and Drug Administration. The FDA does not require this test to go through premarket FDA review. These tests are used for clinical purposes. They should not be regarded as investigational or for research. This laboratory is certified under the Clinical Laboratory Improvement Amendments (CLIA) as qualified to perform high complexity clinical laboratory testing. This case has been personally reviewed and interpreted by the attending (teaching) pathologist. 10/26/2023 1:45 PM CDT [facility] Embedded Images 10/26/2023 1:45 PM CDT [facility] Pathology/Cytolo gy ENTIRE PLACENTA / Unknown 09/28/2023 8:54 AM CDT 09/28/2023 8:54 AM CDT Savana Szymanski MD LAB - PATHOLOGY/CYTOLOGY OR DERABLES Final Result Performing Organization Address City/State/[facility] Co de Phone Number [facility] [address] [phone] * AUTOPSY ([facility]) (09/28/2023 8:49 AM CDT) Case Report Autopsy Report Case: [id number] Authorizing Provider: Savana Szymanski MD Ordering Provider: Savana Szymanski MD Ordering Location: [facility] - Pathology Lab Pathologist: Aziza Will MD Specimen: Autopsy 4 3:11 PM CDT [facility] FINAL ANATOMIC DIAGNOSES Intrauterine demise, delivered at 38 weeks, 5 days gestation Growth parameters Weight 2,430 kg, 37th percentile Length (crown heel) 46 cm, 41st percentile Head circumference 32 cm, 25th percentile Foot length (right) 7.5 cm, 59th percentile Valve competent patent foramen ovale Patent ductus arteriosus Extensive maceration of skin surfaces Biventricular dilation, heart Tricuspid valve: 3.7 cm; normal expected 3.5 cm Pulmonic valve: 2.0 cm; normal expected 2.4 cm Mitral valve: 3.5 cm; normal expected 3.1 cm Aortic valve: 1.8 cm; normal expected 1.7 cm Visceral organ findings Involuted thymus, 3.06 g (3rd percentile), NE: 9.6 g 3.6 g Aspiration of amniotic sac contents Autolysis consistent with in utero days before delivery Cavity effusions: Right pleural cavity: 14 ml red serosanguinous fluid Left pleural cavity: 10 mL red serosanguinous fluid Pericardial cavity: 3 mL red serosanguinous fluid Third trimester placenta and three vessel umbilical cord (38 weeks gestation) ([id number]): Placental weight 373 g (3rd percentile for gestational age) Fetoplacental ratio 6.5 (25th-50th percentile for gestational age) Changes consistent with in utero hours before delivery Chronic villitis of unknown etiology, high grade Multiple intraparenchymal thrombohematomas 3:11 PM CDT [facility] at 1511 CDT Clinical History This stillborn fetus was delivered at 38 weeks, 5 days gestation to a 31 year old mother. LMP ws 12/26/22 and ADRIAN was 10/02/23. The mother had a history of infertility for more than a year and had a history of clomid use and assisted reproduction. The details of that therapy were not included in the records submitted. The course was complicated only by a low lying placenta which resolved prior to delivery, and maternal COVID-19 infection in June 2023. Laboratory evaluation showed a non-immune rubella titer but other viral serology, GBS and STD testing was negative, normal TSH and T4, and O+ blood type, without unexpected antibodies. Mother did not have hypertension or gestational diabetes. Mother presented to the gas technician for a routine visit on 09/22/23 during which heart tones were found to be absent. She was referred to [facility] ([place], [place]) for induction of labor. The labor and delivery on 09/23/23 was significant for a loose nuchal cord, and mild meconium stained amniotic fluid. Labor was otherwise unremarkable. 3:11 PM CDT [facility] EXTERNAL EXAMINATION EXTERNAL EXAMINATION Normal expected (NE) values are based on mean value for 38 weeks of gestational age one standard deviation. Development: Appropriate for gestational age Weight: 2430 g (37th percentile) NE: 2603 g 558.8 g [place]-Heel Length: 46.0 cm (41st percentile) NE: 46.97 cm 4.43 cm [place]-Rump Length: 31.5 cm (25th percentile) NE: 33.56 cm 3.16 cm Head Circumference: 32.0 cm (25th percentile) NE: 33.1 cm 1.63 cm Chest Circumference: 32 cm Abdominal Circumference: 30.1 cm Foot Length: 7.5 cm (59th percentile) NE: 7.34 cm 0.67 Palpebral Fissure Length: 2 cm Intercanthal Length: 2.5 cm Rigor Mortis: None Jaundice: None Facies: Unremarkable Nasal Passages: Patent Ears (shape): Unremarkable Ext. Auditory Canals: Patent Sclerae (appearance): Injected Irides: Dark red Fontanelles: Open Lips: Sunken Teeth: Non-erupted Gums: Unremarkable Tongue: [place], not enlarged Palate: Intact Hair: Dark brown, curly, extending to upper neck Skin: Diffusely macerated, with sparing of face, bilateral hands/feet, and bilateral thighs NECK Nodes: None palpable Trachea: Midline with extensive peeling and erythema THORAX Symmetry: Yes Breasts: Flat without beading ABDOMEN Fluid: No fluid wave Organs: No palpable organomegaly Umbilicus: dark red, dull, with narrowing at insertion, 1.5 cm with clamp Anus: Patent GENITALIA Vulva: Normal appearance for gestational age EXTREMITIES: Unremarkable digits and palmar crease pattern 4 3:11 PM CDT [facility] EVIDENCE OF MEDICAL CARE None 4 3:11 PM [facility] INTERNAL EXAMINATION INTERNAL EXAMINATION CAVITIES Primary Incision: U-shaped thoracoabdominal Panniculus Adiposus: 0.8 cm Muscle: [place]-red PERITONEAL CAVITY Fluid: Approximately 10 mL serous peritoneal fluid Adhesions: None Surfaces: Smooth Situs: Solitus Diaphragm: Intact bilaterally Liver Position: RAAL: 1.5 cm RMCL: 1.8 cm ML: 1.5 cm LMCL: 1.0 cm Spleen: At left costal margin Urinary Bladder: 1.0 cm above pubis Stomach: Non-distended Vermiform Appendix: Right lower quadrant Mesenteric Root: Unremarkable in radius and attachment PLEURAL CAVITIES Fluid: 14 mL serosanguinous fluid within right pleural cavity; 10 mL serosanguinous fluid within left pleural cavity Adhesions: None Surfaces: Smooth MEDIASTINUM Thymus: Lobular pink-red Weight: 3.06 g (3rd percentile) NE: 9.6 g 3.6 g Veins: Unremarkable Arteries: Unremarkable Lymph Nodes: Not enlarged PERICARDIUM Fluid: 3 mL serosanguinous fluid Surfaces: Smooth Adhesions: None NECK ORGANS Tongue: Unremarkable Larynx: Unremarkable Trachea: Patent, no tracheoesophageal fistula Vocal Folds: Unremarkable Thyroid Gland: [place]-guillen Parathyroid Glands: Not identified LUNGS Combined weight: 35.3 g (17th percentile) NE: 48.4 g 14.0 g Pleura: Cobblestone appearance Color: [place]-red Consistency: Rubbery Crepitance: None Bronchi: Unremarkable Vessels: Unremarkable Phrenic nerves present bilaterally HEART Weight: 11.8 g (6th percentile) NE: 18.6 g 4.5 g Tricuspid Valve: 3.7 cm NE: 3.5 cm Pulmonic Valve: 2.0 cm NE: 2.4 cm Mitral Valve: 3.5 cm NE: 3.1 cm Aortic Valve: 1.8 cm NE: 1.7 cm Wall Thickness Left Ventricle: 2 mm NE: 4.2 mm Right Ventricle: 1 mm NE: 3 mm Ductus Arteriosus: Patent Foramen Ovale: Patent, valve-competent Endocardium: Smooth Myocardium: [place]-guillen Epicardium: No significant fat Valves: Unremarkable Pulmonary Arteries, Veins: Unremarkable with normal return configuration Coronary Arteries: Unremarkable Coronary Sinus: Non-dilated Aorta: Left arch Main Branches: Unremarkable arborization ALIMENTARY TRACT Pharynx: Unremarkable Esophagus: Smooth, pink-white mucosa Stomach: Scant clear fluid Ampulla of Vater: Patent Small Intestine: Contains brown soft luminal contents Vermiform Appendix: Unremarkable, 4.5 x 0.4 cm Large Intestine: Filled with meconium, mildly distended descending colon Mesentery: yellow guillen without enlarged mesenteric lymph nodes LIVER Weight: 52.45 g (<1st percentile) NE: 115.6 g 26.0 g Appearance: brown-joshi and mottled Ductus Venosus: Patent Portal Veins: Unremarkable GALLBLADDER AND BILE DUCTS Size: 3.6 x 0.9 x 0.7 cm Contents: Green bile PANCREAS Weight: 0.65 g (<1st percentile) NE: 3.0 g 0.9 g Color: [place]-red Size: Unremarkable Consistency: Lobular ADRENAL GLANDS Weight: 5.65 g combined (27th percentile), left greater than right NE: 7.0 g 2.3 g Color: Guillen Shape: Pyramidal Consistency: Soft and friable Cut Surface: Autolytic with yellow medulla KIDNEYS Weight: 16.6 g combined (14th percentile) NE: 23.9 g 6.8 g Right Weight: 8.9 g Capsules: lobulation Cortices: [place]-red, 0.3 cm thick Pelves: Non-dilated Left Weight: 7.7 g Capsules: lobulation Cortices: [place]-red, 0.3 cm thick Pelves: Non-dilated Renal Arteries: Patent Ureters: Patent, Non-distended URINARY BLADDER Contents: Empty Wall: Unremarkable Mucosa: Smooth, white-guillen Orifices: Patent INTERNAL GENITALIA Vagina: Patent with guillen wrinkled mucosa Uterus: 2.5 x 1.5 x 0.5 cm Fallopian tubes: Normal, fimbriated Ovaries: Unremarkable, within pelvic cavity SPLEEN Weight: 4.30 g NE: 9.1 g 3.5 g Color: Burgundy Shape: Lenticular Consistency: Soft LYMPH NODES Mediastinal, Mesenteric: Not prominent VENA CAVA Clots/Thrombi/Air: None SKELETON Ribs, Vertebrae, Iliac Bones: Unremarkable SKULL Primary Incision: Bitemporal [id number] Symmetry: Yes Sutures: Displaceable Fontanelles: Open Consistency: [place], soft, semi-fluid Brain Weight: 280 g NE: 340 g Spinal Cord: Guillen, unremarkable Pituitary: Present Microscopic Cassette Corral A1 Ribs & Vertebra A2 Spinal cord A3 Pancreas & gallbladder A4 Bladder & ureters A5 Right kidney A6 Left kidney A7 Bilateral adrenals A8 Spleen & diaphragm A9 Cecum, ileum, & appendix A10 Aorta & thymus A11 Esophagus, GEJ, & pylorus A12 Uterus A13 Fallopian tubes & ovaries A14 Mesentery A15 Psoas muscle & skin A16 Liver A17 Descending colon and small intestine A18 Trachea, larynx, & thyroid A19 Left heart A20 Right heart A21 Right lung (upper, middle, & lower lobes) A22 Left lung (upper & lower lobes) A23 Brain A24 Pituitary 4 3:11 PM CDT [facility] Microscopic Description Heart 2 HE: Myocardial fibers in the ventricles show diffuse autolysis with loss of nuclear detail. A few nucleated cells are present in vessels. Lungs 2 HE: Lung development is consistent with the gestational age. There are nucleated red blood cells in blood vessels. Within the alveolar airspaces, scattered squamous epithelial cells and a small amount of debris consistent with meconium are seen. Spleen 1 HE: The spleen shows severe autolysis which precludes further examination. Liver 1 HE: Hepatocytes show complete loss of nuclear basophilia with diffuse autolysis. Evaluation of hematopoiesis and portal tracts is not possible because of the autolysis. Gallbladder 1 HE: The gallbladder mucosa shows diffuse autolysis. Pancreas 1 HE: Severe autolysis of the pancreas precludes further evaluation. Gastrointestinal tract 2 HE: The gastrointestinal tract shows diffuse autolysis which precludes further examination. Mesentery 1 HE: Mesenteric nodes show lymphocytes without germinal center formation and with focal autolysis. Adrenals 1 HE: Bilateral adrenal glands show moderate to severe autolysis with some retention of nuclear detail at the peripheral of the glands but loss of most cytologic detail. A rim of definitive cortex is over the cortex. Kidneys 2 HE: The kidneys show mild to severe autolysis. The nephrogenic layer is present and is continuous along the subcapsular region of the kidney. There are approximately 14-18 generations of glomeruli, appropriate for gestational age. Bladder 1 HE: The bladder shows unremarkable muscular wall. The ureter cross sections show a similar unremarkable muscular wall with patent lumens. The urothelium is denuded in both the bladder and ureters. Reproductive organs 2 HE: The uterus, cervix, bilateral ovaries, and bilateral fallopian tubes show severe autolysis. The ovaries show numerous primordial follicles appropriate for development. Thyroid 1 HE: Thyroid demonstrates moderate autolysis with diffuse follicular collapse. Thymus 1 HE: Thymus shows mild autolysis with involution. Hassall's corpuscles are present. Lymphoid tissue: Lymphoid development is consistent with gestational age and shows normal follicular development with mild autolysis. Bone and bone marrow 1 HE: The bone marrow shows moderate autolysis with present trilineage hematopoiesis. The bone growth plate is normal for the gestational age. Muscle 2 HE: Industrial Arts Teacher sections of psoas muscle and diaphragm show appropriate development for age. Brain. pituitary and spinal cord 3 HE: A section of brain matter and spinal cord show neural parenchyma without evidence of hemorrhage or acute inflammation. Autolytic changes are identified. The neuronal nuclei show no loss of nuclear basophilia with mild eosinophilic cytoplasm. The pituitary is normal for the gestational age. Larynx and trachea: The larynx, trachea, and bronchus have moderate autolysis. The trachea and larynx show denudation of the epithelium. 4 3:11 PM [facility] CLINICOPATHOLOGIC CORRELATION This stillborn fetus was delivered at 38 weeks after absence of heart tones was noted on a routine obstetrical visit. The was of result of in-vitro fertilization. At autopsy, no malformations, congenital or developmental abnormalities or evidence of infection. However, there was extensive maceration and autolysis, consistent with in utero occurring days before delivery. Grossly, the placenta was small, less than the third percentile for gestational age and had multiple thrombohematomas affecting approximately 10% of the placenta. Microscopically, there was multifocal diffuse organ autolysis and based on these findings, it is estimated that in utero occurred approximately 4 days and less than a week before delivery. Additional microscopic findings consistent with hypoxic stress were the evidence of aspiration of amniotic sac contents and thymic involution. Due to the autolysis, detailed microscopic examination is limited. Microscopic examination of the placenta showed high grade chronic villitis (Villitis of Unknown Etiology, VELIA). In VELIA, maternal CD8 T lymphocytes enter villi through breaks in the trophoblastic barrier, encounter antigen on macrophages, and in the proper environment, proliferate, resulting in diffuse chronic inflammation spreading within the villous tree and the release of T cell cytokines and chemokines into the circulation. This pathology has been associated with growth restriction, stillbirth, neurodisability, and recurrent loss and maternal conditions including ovum donation, autoimmune disease, preeclampsia and substance abuse.While it is not clear from the medical records received what the nature of the assisted reproductive technology was in this case, there are studies that suggest IVF with ovum donation is associated with placental alterations similar to those seen in this case. One study showed that IVF is associated with villitis of unknown etiology at a rate of 16.2% compared to 8.3% in control cases. Intervillous thrombi are also more common in this setting. Mediation by an abnormal immune response at the maternal interface has been proposed to contribute to the placental complications in these patients. The demise in this case likely related to placental dysfunction, due to the small size of the placenta, the chronic villitis which developed in the weeks before delivery compounded by the acute thrombohematomas. What role the history of the assisted reproduction had, if any, in the development of these processes is speculative. Additional clarification of the clinical history may be helpful in further evaluation of the placental pathology. Misael MARTINS, Palma L, Estrada O, Kristopher M, Annita Sanders, Niranjan L, Yonas Camp, Ernestina Arriola. Placental-related disorders of and IVF: does placental histological examination explain the excess risk? Reprod Biomed Online. 2019;41(1):81-87. doi: 10.1016/j.rbmo.2020 .04.001. Epub 2019Nov 06. PMID: 29838371. CHIDI Brewster, Belle Alexander, Soto MEDINA, Kym SHEPHERD, Placental pathology and outcomes in donor and non-donor oocyte in vitro fertilization pregnancies. J Medicine, December 09, 2004. [email or web address]. [email or web address] Aaron et al, Pregnancies through oocyte donation. A mini review of pathways involved in placental dysfunction, Frontiers in Medicine, July 27 2023, DOI: 10.3389/fmed.[email or web address] [id number] 4 3:11 PM CDT [facility] Embedded Images 4 3:11 PM CDT [facility] Date of Autopsy 09/28/2023 4 3:11 PM CDT [facility] Pathologist Location at [facility] 4 3:11 PM CDT [facility] Pathology/Cytolo gy AUTOPSY EXAMINATION / Unknown 09/28/2023 8:49 AM CDT 09/28/2023 8:50 AM CDT Narrative [facility] - 12/13/2023 3:11 PM CDT A previously reported component PROVISIONAL ANATOMIC DIAGNOSIS is no longer reported. Savana Szymanski MD LAB - PATHOLOGY/CYTOLOGY OR DERABLES Final Result [facility] [address] [facility]. [address] [phone] documented in this encounter Visit Diagnoses Diagnosis Illness, unspecified documented in this encounter
--- OUTSIDE RECORDS SUMMARY | 2024-12-17 17:04 | XMS_ITS | Encounter Summary ---
Author Organization [facility] Address [address] [place] [address] Care Team Providers Care Warehouse Stocker Name Role Phone Unavailable Primary Care Provider Unavailabl e Reason for Referral * (Routine) - Open Specialty Diagnoses / Procedures Referred By Contac t Referred To Contact Diagnoses Family history of infertility Positive LINETTE (antinuclear antibody) Subchorionic hemorrhage in second trimester (HCC) Encounter for screening ([facility]) History of loss in prior , currently in third trimester ([facility]) 33 weeks gestation of ([facility]) Encounter for ultrasound to assess growth ([facility]) Procedures BIOPHYSICAL PROFILE W NST Savana Szymanski MD [address] [place] [address] Phone: tel: fax: Referral ID Status Reason Start Date Expiration Date Visits Re quested Visits Authorized [id number] Open 11/20/2024 11/20/2025 4 4 Reason for Visit * Reason Comments Ultrasound Non-stress Test * (Routine) - Open Specialty Diagnoses / Procedures Referred By Contac t Referred To Contact Diagnoses Family history of infertility Positive LINETTE (antinuclear antibody) Subchorionic hemorrhage in second trimester (HCC) Encounter for screening ([facility]) History of loss in prior , currently in third trimester (HCC) 33 weeks gestation of ([facility]) Encounter for ultrasound to assess growth ([facility]) Procedures BIOPHYSICAL PROFILE W NST Savana Szymanski MD [address] [place] [address] Phone: tel: fax: Referral ID Status Reason Start Date Expiration Date Visits Re quested Visits Authorized [id number] Open 11/20/2024 11/20/2025 4 4 Encounter Details Date Type Department Care Team (Late st Contact Info) Description 12/17/2024 7:25 AM CDT Hospital Encounter [facility] [address] [place], [place] [id number] Mel Hall MD [address] [facility] [facility] [place] [address] Lynn Ballesteros MD [address] [facility] [address] [place] [address] 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 Social History Tobacco Use Types Packs/Day Years Used Date Smoking Tobacco: Never Smokeless Tobacco: Never Alcohol Use Standard Drinks/Week Comments Not Currently 0 (1 standard drink = 0.6 oz pur e alcohol) Estimated Date of Delivery Comme nts Yes 01/11/2025 Based on last me nstrual period of 04/06/2024 Sex and Gender Information Value Date Recorded Sex Assigned at Not on file Legal Sex Female 10:06 AM REPOSSESSOR Gender Identity Not on file Sexual Orientation Not on file documented as of this encounter Last Filed Vital Signs Vital Sign Reading Time Taken Comments Blood Pressure 121/80 12/17/2024 8:25 AM CDT Pulse 86 12/17/2024 8:25 AM CDT Temperature - - Respiratory Rate - - Oxygen Saturation - - Inhaled Oxygen Concentration - - Weight - - Height - - Body Mass Index - - documented in this encounter Plan of Treatment Not on file documented as of this encounter Procedures Procedure Name Priority Date/Time Associated Diagnosis Comments BIOPHYSICAL PROFILE W NST Routine 12/17/2024 7:21 AM CDT Family history of infertility Positive LINETTE (antinuclear antibody) Subchorionic hemorrhage in second trimester (HCC) Encounter for screening ([facility]) History of loss in prior , currently in third trimester (HCC) 33 weeks gestation of ([facility]) Encounter for ultrasound to assess growth (HCC) documented in this encounter Results * BIOPHYSICAL PROFILE W NST (12/17/2024 7:21 AM CDT) Linked Results Indication ======== Hx IUFD at [...] tone 2: Amniotic fluid volume NST: reactive 10/10 Biophysical profile score Non Stress Test NST [...] 7 lb 6 oz EFW by Hadlock ([id number]) overall normal range, but the AC is [...] due to maternal anxiety. Coding ====== Procedures 26564: [place] [address]: Biophysical Profile W NST [facility] mytrax PACS Anatomical Region Laterality Modality Other 12/17/2024 7:21 AM CDT us Savana Szymanski MD [facility] ORDERABLES Edited Re sult - Final documented in this encounter Visit Diagnoses Diagnosis Family history of infertility- Primary Family history of other genitourinary diseases Positive LINETTE (antinuclear antibody) Other and unspecified nonspecific immunological findings Subchorionic hemorrhage in second trimester ([facility]) Encounter for screening ([facility]) Encounter for ultrasound ([facility]) Encounter for routine screening for malformation using ultrasonics History of loss in prior , currently in third trimester (HCC) 36 weeks gestation of ([facility]) state, incidental 33 weeks gestation of ([facility]) state, incidental Encounter for ultrasound to assess growth ([facility]) documented in this encounter
--- OUTSIDE RECORDS SUMMARY | 2024-12-17 17:04 | XMS_ITS | Referral Summary ---
Author Organization [address] Address [address] [place] [id number] Care Team Providers Care Platen Press Operator Apprentice Name Role Phone Unknown, Notinfile Primary Care [...] on file Legal Sex Female 10:14 PM DEVELOPMENT ASSOCIATE Gender Identity Female 06/27/2023 7:47 PM DEVELOPMENT ASSOCIATE Sexual Orientation Not on file Last Filed Vital Signs Vital Sign Reading Time Taken Comments Blood Pressure 116/70 06/28/2023 3:21 PM DEVELOPMENT ASSOCIATE Pulse 112 06/28/2023 3:21 PM DEVELOPMENT ASSOCIATE Temperature 36.6 C (97.9 F) 06/28/2023 3:21 PM DEVELOPMENT ASSOCIATE Respiratory Rate 20 06/28/2023 3:21 PM DEVELOPMENT ASSOCIATE Oxygen Saturation 99% 06/28/2023 3:21 PM DEVELOPMENT ASSOCIATE Inhaled Oxygen Concentration - - Weight 92.5 kg (204 lb) 06/28/2023 3:21 PM DEVELOPMENT ASSOCIATE Height 160 cm (5' 3) 08/14/2022 2:28 PM DEVELOPMENT ASSOCIATE Body Mass Index 36.14 08/14/2022 2:28 PM DEVELOPMENT ASSOCIATE Plan of Treatment Not on file Insurance [facility] [id number] [facility] [id number] Care Teams Platen Press Operator Apprentice Relationship Specialty Start Date End Date Unknown, Notinfile PCP - General 08/14/22
[2024-12-17 17:53] LABS: Basophils Percent Auto 0.2 % (0.2-1.2); Eosinophils Absolute Auto 0.1 K/mm3 (0-0.3); Eosinophils Percent Auto 0.4 % (0-4.4); Hematocrit 33.1 % (37.0-47.0); Hemoglobin 10.6 g/dL (12.0-15.0); Immature Granulocyte Absolute 0.04 K/mm3 (0.00-0.031); Immature Granulocyte Percent A 0.4 % (0-0.5); Lymphocytes Absolute Auto 1.88 K/mm3 (0.9-3.2); Lymphocytes Percent Auto 16.6 % (18.3-44.2); Mean Corpuscular Hemoglobin 26.4 pg (26-34); Mean Corpuscular Volume 82.3 fl (80-100); Mean Platelet Volume 9.7 fl (7.4-10.4); Monocytes Absolute Auto 0.8 K/mm3 (0.1-0.6); Monocytes Percent Auto 7.1 % (2.6-8.5); Neutrophils Absolute Auto 8.5 K/mm3 (1.3-6.7); Neutrophils Percent Auto 75.3 % (45.5-73.1); Platelet Count Result 241 k/mm3 (150-375); Red Blood Count 4.02 M/mm3 (4.2-5.4); Red Cell Distribution Width 14.1 % (11.5-14.5); White Blood Count 11.3 K/mm3 (4.5-10.0)
--- NOTE | 2024-12-17 17:54 | LDADM ---
This patient, Moni Lopez, was admitted to Labor/Delivery/Recovery 103 on 12/17/24 at 16:59. Plans for labor, pain management and were discussed with patient. Patient/family oriented to hospital policies and general routines including ID bracelet, bed and alarms, visiting hours, pain management, procedures, bathroom and other care routines, personal items, smoking policy, room service/diet and guest tray routines, security routines, and visiting hours. Patient/Family are encouraged to report perceived risks to care and to ask questions if they do not understand what they are told or what they should do. See OBIX for further documentation.
[2024-12-17] MEDS: DINOPROSTONE 10 MG VAG INSERT VAGINAL (18:14)
[2024-12-17 18:32] LABS: Syphilis IgG/IgM Antibody Non-Reactive (Nonreactive)
[2024-12-17 18:45] LABS: HIV 1/2 Ab P24 Ag Result Negative (Negative)
[2024-12-17] MEDS: SERTRALINE HCL 50 MG TABLET PO (22:47)
[2024-12-18] VITALS (79 sets, daily range): BP systolic 89–152; BP diastolic 53–100; PULSE 69–120; RESP 18; TEMP 36.2–37.2; O2SAT 95–99
[2024-12-18] MEDS: LACTATED RINGERS 1,000 ML 125 ML IV CONT ×2 (06:37→14:07)
[2024-12-18] MEDS: OXYTOCIN 30 UNITS/NS 500 ML 30 UNITS/500 ML BAG IV CONT (06:38)
--- NOTE | 2024-12-18 07:32 | WPDOBADMIT ---
Obstetrics - Admit Note Admission Note: record reviewed. No pertinent additions to the history and/or any subsequent changes in the physical findings that are not consistent with the expected course of the were found. Additions to the history and/or subsequent changes in the physical findings follow. None.Here for MIL. cervadil last pm and now Pitocin. Cervix 1-2/5-/-3 Ballot. Attempted to AROM but not able. Continue pitocin. FHTs reactive.
--- NOTE | 2024-12-18 15:43 | WPDANESEPPF ---
Anes - Initial Pre Proc Eval Date/Time: 12/18/24 15:43 Surgeon: Savana Szymanski MD Pre Op Diagnosis: IOL Patient Data Age: 34 Gender: F Height: 1.6 m Weight: 102.6 kg Last Vital Signs Temp 36.8 C 12/18/24 12:00 Pulse 91 12/18/24 15:42 BP 123/72 12/18/24 15:42 Pulse Ox 96 12/18/24 15:41 O2 Del Method Room Air 12/17/24 17:53 Allergies Allergy/AdvReac Type Severity Reaction Status Date / Time No Known Allergies Allergy Verified 12/18/24 14:09 Home Medications ?Medication ?Instructions ?Recorded ?Confirmed ?Type cholecalciferol (vitamin D3) 125 5,000 unit PO WEEKLY 09/03/23 12/17/24 History mcg (5,000 unit) tablet (Vitamin D3) Vitamin 1 tablet PO DAILY 12/10/24 12/18/24 History aspirin 81 mg tablet 162 mg PO DAILY 12/10/24 12/17/24 History sertraline 50 mg tablet (Zoloft) 50 mg PO DAILY 12/10/24 12/17/24 History Laboratory Tests 12/17/24 17:40 WBC 11.3 H K/mm3 (4.5-10.0) RBC 4.02 L M/mm3 (4.2-5.4) Hgb 10.6 L g/dL (12.0-15.0) Hct 33.1 L % (37.0-47.0) MCV 82.3 fl (80-100) MCH 26.4 pg (26-34) MCHC 32.0 g/dl (32-36) RDW 14.1 % (11.5-14.5) Plt Count 241 k/mm3 (150-375) MPV 9.7 fl (7.4-10.4) Immature Gran % (Auto) 0.4 % (0-0.5) Neut % (Auto) 75.3 H % (45.5-73.1) Lymph % (Auto) 16.6 L % (18.3-44.2) [place] % (Auto) 7.1 % (2.6-8.5) Eos % (Auto) 0.4 % (0-4.4) Baso % (Auto) 0.2 % (0.2-1.2) Lymph # (Auto) 1.88 K/mm3 (0.9-3.2) [place] # (Auto) 0.8 H K/mm3 (0.1-0.6) Eos # (Auto) 0.1 K/mm3 (0-0.3) Baso # (Auto) 0.0 K/mm3 (0.0-0.1) Abs Immat Gran (auto) 0.04 H K/mm3 (0.00-0.031) Absolute Neuts (auto) 8.5 H K/mm3 (1.3-6.7) Absolute Nucleated RBC 0.000 K/mm3 (0.0-0.012) Nucleated RBC % 0.0 % (0.0-0.2) Syphilis IgG/IgM Ab Non-reactive (Nonreactive) HIV 1&2 Ab/P24 Ag 4thGn Negative (Negative) Blood Type O Positive Antibody Screen Negative Patient hx anesthesia problems: none Family hx anesthesia problems: none Results Review: All pre-operative results and documents have been reviewed as part of the pre-operative evaluation. [facility] Past Medical History Medical History IUFD (intrauterine ) Family History Family History Father Crohn's disease Grandparent Colon cancer Social History Social History Smoking status: Never smoker Substance use: never Do You Feel Safe in your Home?: Yes Lack of Transportation: No Lack of Food: Never True Current Housing: I Have Housing Concerned About Future Housing: No Difficulty Paying Gas/Electric Bills: No Difficulty Paying for Meds: No Currently Unemployed: No Education: Bachelor's Degree Difficulty w/ Childcare or Family Care: No Spiritual care concerns: No Anes - Eval Final PreProcedure Day of Procedure 12/18/24 15:43 Patient weight: morbidly obese Heart: regular rate and rhythm Lungs: clear to auscultation Neurological: alert and oriented ASA classification: III Emergent: no Anesthetic plan: proceed Anesthesia type and monitoring: regional epidural and standard monitoring Results Review: All pre-operative results and documents have been reviewed as part of the pre-operative evaluation. Informed Consent: The patient's anesthetic plan and its attendant risks and benefits were discussed with the patient/family/POA. Questions were solicited and answers provided to the satisfaction of the patient/family/POA.
--- NOTE | 2024-12-18 17:48 | P.PCNOB_ITS ---
OB - Vaginal Delivery Note Procedure Delivery date: 12/18/24 Events: Other (Hx Full term IUFD; now 36 10/15) Induction method: AROM, Per Pitocin Protocol and Per Cervidil Protocol Delivery monitor: External FHT and Internal Uterine Route of delivery: Episiotomy description: None Laceration Description: Perineal - 1st Degree Delivery repair: vicryl (3-0) Specimen: Yes (placenta) Quantitative Blood Loss (ml): 100 Anesthesia type: Epidural Disposition: Floor Complications: No immediate complications [place] Baby Date of : 12/18/24 Gestational Age by Date: 36 (10/15) Infant gender: Female Weight (pounds): 5 Weight (ounces): 12 presentation: vertex position: Right Occiput Anterior Placenta delivery description: Spontaneous Cord Vessel Description: 3 Vessels, Delayed Cord Clamping and Other (cord around shoulder) score one minute: 8 score five minutes: 8
--- NOTE | 2024-12-18 17:50 | PM.OBDSVD ---
DS: Admitting Diagnosis Discharge Date 12/20/24 Admitting Diagnosis IUP 36 3/7 Hx IUFD MIL DS: Discharge Diagnosis Discharge Diagnosis (1) (normal spontaneous vaginal delivery): Code(s): O80 - Encounter for full-term uncomplicated delivery Status: Acute OB - DS: Summary OB Procedures : NST and Ultrasound OB Procedures Intrapartum: Spontaneous Vag Delivery OB Procedures: : None Peripartum Data Delivery Method: Natural Vaginal Laceration Description: Perineal - 1st Degree Episiotomy description: None complications: none Status at Discharge Functional status at discharge: independent ambulation Overall status at discharge: patient is progressing back to baseline Time Spent with Patient Time attestation: Total time spent providing and/or coordinating discharge services: DS: Data Data Completed and Pending Labs on day of discharge: Labs from last 24 hours 12/17/24 17:40 WBC 11.3 H RBC 4.02 L Hgb 10.6 L Hct 33.1 L MCV 82.3 MCH 26.4 MCHC 32.0 RDW 14.1 Plt Count 241 MPV 9.7 Immature Gran % (Auto) 0.4 Neut % (Auto) 75.3 H Lymph % (Auto) 16.6 L [place] % (Auto) 7.1 Eos % (Auto) 0.4 Baso % (Auto) 0.2 Lymph # (Auto) 1.88 [place] # (Auto) 0.8 H Eos # (Auto) 0.1 Baso # (Auto) 0.0 Abs Immat Gran (auto) 0.04 H Absolute Neuts (auto) 8.5 H Absolute Nucleated RBC 0.000 Nucleated RBC % 0.0 Syphilis IgG/IgM Ab Non-reactive HIV 1&2 Ab/P24 Ag 4thGn Negative Blood Type O Positive Antibody Screen Negative Discharge Plan Discharge Attending physician on discharge: Savana Szymanski Discharging Clinician: Savana Szymanski Anticipated Discharge Date/Time: 12/20/24 17:51 Patient Disposition: Home Activity: may shower and pelvic rest Diet: regular Patient Instructions: Antibiotic Form Patient Language: Emirati Stand Alone Forms: General Discharge Information Follow-up/Referrals: Savana Szymanski MD [Physician] - 6 Weeks Discharge Medications: New norethindrone (contraceptive) 0.35 mg tablet 0.35 mg PO DAILY Qty: 84 0RF Rx Instructions: start 3 wks Continued sertraline [Zoloft] 50 mg tablet 50 mg PO DAILY Vitamin 1 tablet PO DAILY cholecalciferol (vitamin D3) [Vitamin D3] 125 mcg (5,000 unit) Tablet 5,000 unit PO WEEKLY Discontinued aspirin 81 mg tablet 162 mg PO DAILY Date of admission: 12/17/24 16:59 Primary Care Provider: PHYSICIAN,IMPORT/EXPORT ADMINISTRATOR Admitting Provider: Savana Szymanski Attending physician on admission: Savana Szymanski Condition: Stable
[2024-12-18] MEDS: OXYTOCIN 30 UNITS/NS 500 ML 30 UNITS/500 ML BAG 125 UNITS IV CONT (18:06)
--- NOTE | 2024-12-18 18:11 | S_PTH ---
PATIENT: Moni Lopez LOC: [facility] U#:[id number] AGE/SX: 34/F ROOM: 291 RE12/17/[address]: Savana Szymanski MD : 1990 BED: 00 DIS: 12/20/2024 SPEC #: [id number] RECD: 12/19/24 07:51 STATUS: SOPHIA REBhumika #: [id number] ZACH: 12/18/24 18:[address]: Savana Szymanski DEPT: [facility] RECD BY: Yael Veliz ENTERED: 12/19/24 07:51 SP TYPE: Surgical OTHR DR: STEAM PLANT CONTROL ROOM OPERATOR PHYSICIAN Tissues: A - Placenta Procedures: Hematoxylin and Eosin Stain Gross and Microscopic Level 5
[2024-12-19 00:16] VITALS: BP 118/66; PULSE 101; RESP 20; TEMP 36.9
[2024-12-19] MEDS: IBUPROFEN 600 MG TABLET PO ×2 (03:20→16:10)
[2024-12-19 04:06] LABS: Hematocrit 34.4 % (37.0-47.0); Hemoglobin 10.9 g/dL (12.0-15.0)
[2024-12-19 07:30] VITALS: BP 120/83; PULSE 83; RESP 16; TEMP 36.1; O2SAT 98
--- NOTE | 2024-12-19 07:30 | P.PNOB_ITS ---
OB - PN: Subj Subjective Date/time seen: 12/19/24 07:30 Patient comments: no complaints and pain well controlled baby status: doing well OB - PN: Obj Data Labs 12/19/24 03:22 Labs: Laboratory Results - last 24 hr 12/19/24 03:22 Hgb 10.9 L Hct 34.4 L OB - PN A/P Plan day: 1 Plan: routine care Time Spent With Patient Time: Total time spent is greater than 50% in coordination of care (as documented) at patient's floor/unit and/or counseling patient: Exam 2 : Bimanual exam- vagina & uterus: other (Uterus firm, nt @U)
[2024-12-19] MEDS: MULTIVIT/MIN/PREN/FOL AC/IRON TABLET 1 TAB PO (08:52)
[2024-12-19] MEDS: DOCUSATE SODIUM 100 MG CAPSULE PO (08:52)
--- NOTE | 2024-12-19 11:58 | PC.NURSE ---
1130. Introductions were made, then consulted with patient to assess needs related to . Mom states it is her intent to pump and bottle feed her with her expressed breast milk. Mom is using her own Spectra breast pump. Instructions given on cleaning, care, usage, that there should be no pain, pumping schedule for milk production, collection, and storage of human milk. Patient was assessed for correct placement, flange size, to pump for comfort and nipple stretching/stimulation for adequate milk production every 3 hours (8 times in 24 hours) 1-2 times at night. Parents are encouraged to record the pumping schedule on the feeding sheet.?Mother voiced understanding of the education shared along with mom/baby guide and the pump measurement, flange fit handout for additional resource information. Reported to the Primary RN. Resources provided for inpatient and outpatient services with the feeding sheet, mom/baby guide and name written on the communication board.
--- NOTE | 2024-12-19 12:12 | WPDANLDPN2 ---
Anes-Prog Note L&D Date/Time: 12/19/24 12:12 Comfortable throughout: labor and delivery Neuraxial method: epidural Epidural/Spinal procedure site: clean & non-tender Neuro status: Neuro function grossly intact. Cardiovascular status: normal Respiratory status: normal Airway patency: baseline Mental status: baseline Post-Op hydration status: normal Vital Signs: Last Vital Signs Temp 36.1 C L 12/19/24 07:30 Pulse 83 12/19/24 07:30 Resp 16 12/19/24 07:30 BP 120/83 12/19/24 07:30 Pulse Ox 98 12/19/24 07:30 O2 Del Method Room Air 12/18/24 20:20 Pain score (VAS): 0/10 I/O: Intake & Output 12/18/24 12/19/24 12/19/24 23:59 07:59 15:59 Intake Total 500 240 Output Total 100 Balance 400 240 Post-procedural complaints: none Patient feedback: Patient satisfied with anesthetic care.
[2024-12-19 12:30] VITALS: BP 119/75; PULSE 79; RESP 16; TEMP 36.8; O2SAT 97
[2024-12-19 19:37] VITALS: BP 117/76; PULSE 78; RESP 20; TEMP 36.6; O2SAT 98
[2024-12-20] MEDS: SERTRALINE HCL 50 MG TABLET PO (00:05)
[2024-12-20] MEDS: ACETAMINOPHEN 325 MG TABLET 650 MG PO (00:05)
[2024-12-20 07:35] VITALS: BP 125/84; PULSE 90; RESP 18; TEMP 36.5; O2SAT 99
--- NOTE | 2024-12-20 07:48 | P.PNOB_ITS ---
OB - PN: Subj Subjective Date/time seen: 12/20/24 07:48 Patient comments: no complaints and pain well controlled baby status: doing well OB - PN: Obj Data Labs 12/19/24 03:22 OB - PN A/P Plan day: 2 Plan: routine care, discharge home, follow up 6 weeks and other (Plans POP until vasectomy) Time Spent With Patient Time: Total time spent is greater than 50% in coordination of care (as documented) at patient's floor/unit and/or counseling patient: Exam 2 : Bimanual exam- vagina & uterus: other (Uterus firm, nt @U)
[2024-12-20] MEDS: IBUPROFEN 600 MG TABLET PO (08:20)
[2024-12-20] MEDS: MULTIVIT/MIN/PREN/FOL AC/IRON TABLET 1 TAB PO (08:20)
[2024-12-21 08:29] VITALS: BP 127/74; PULSE 78; RESP 18; TEMP 36.6; O2SAT 98
== END 2024-12-20 12:26 | disposition home or self-care (01) | DRG 807 ==
LOC: ANHLDR 12-18 17:51 → ANHOB2 12-18 20:54
PROVIDERS: Admitting Provider Obstetrics & Gynecology Gynecology; Visit Provider Obstetrics & Gynecology Gynecology
DX: O62.3 Precipitate labor (principal); Z37.0 Single live birth; O69.2XX0 Labor and delivery complicated by other cord entanglement, with compression, not applicable or unspecified; O70.0 First degree perineal laceration during delivery; Z3A.36 36 weeks gestation of pregnancy
CPT/HCPCS: 36415; 85014; 85018; 85025; 86593; 86703; 86850; 86900; 86901; 88307; A9270; G0432; J2590; J2795; J7120